=== PATIENT | female | born 1975 | race Caucasian/White ===

== ENCOUNTER 2018-11-09 09:57 | Emergency (ER) | payer OTHER ==
--- NOTE | 2018-11-09 10:58 | ED ---
Lower Extremity - HPI Summary HPI Summary: Pt presents w/ Lt ankle pain. Injured herself at work today - inverted ankle on ice. Pain is lateral. Swelling and bruising mostly lateral and into midfoot. Denies weakness, numbness, tingling. Pain is worse w/ movement of ankle. Pain radiates from mid foot to ankle. 8/10 pain despite elevation and ice pack. Pain with attempted weight bearing since injury. Other injuries include abrasion to Lt elbow (otherwise moving well w/o pain or restriction) and Rt knee bruise ( otherwise moving well, bearing weight and no pain/restriction). Denies injury to back, spine, neck, head. H/o DVT - takes ASA daily - no anticoagulants. - History of Current Complaint Chief Complaint: EDExtremityLower Stated Complaint: FALL ANKLE INJRUY LEFT Time Seen by Provider: 11/09/18 10:43 Hx Obtained From: Patient Pain Intensity: 6 - Allergies/Home Medications Allergies/Adverse Reactions: Allergies Allergy/AdvReac Type Severity Reaction Status Date / Time No Known Allergies Allergy Verified 11/09/18 10:17 PMH/Surg Hx/FS Hx/Imm Hx Previously Healthy: Yes Endocrine/Hematology History: Reports: Hx Blood Disorders - possible coagulopathy Denies: Hx Anticoagulant Therapy - ASA daily - Immunization History Date of Tetanus Vaccine: UTD Date of Influenza Vaccine: NO Infectious Disease History: No Infectious Disease History: Denies: Traveled Outside the [place] in Last 30 Days - Social History Occupation: Employed Full-time Alcohol Use: Occasionally Hx Substance Use: No Substance Use Type: Reports: None Hx Tobacco Use: No Smoking Status (MU): Never Smoked Tobacco Review of Systems Positive: no symptoms reported Positive: Arthralgia, Myalgia, Decreased ROM, Edema Positive: Bruising - Lt foot and Rt knee, Other - abrasion Lt ebow Neurological: Negative All Other Systems Reviewed And Are Negative: Yes Physical Exam Triage Information Reviewed: Yes Vital Signs On Initial Exam: Initial Vitals Temp Pulse Resp BP Pulse Ox 100 F 94 18 123/98 98 11/09/18 10:14 11/09/18 10:14 11/09/18 10:14 11/09/18 10:14 11/09/18 10:14 Vital Signs Reviewed: Yes Appearance: Positive: Well-Appearing, Pain Distress - moderate, Obese Skin: Positive: Warm, Skin Color Reflects Adequate Perfusion, Dry - no open wounds - ecchymosis about the affected area on Lt dorsal midfoot; superficial abrasion Lt elbow (no active bleeding); Rt knee w/ scna ecchymosis Head/Face: Positive: Normal Head/Face Inspection Eyes: Positive: EOMI ENT: Positive: Hearing grossly normal Respiratory/Lung Sounds: Positive: Breath Sounds Present Cardiovascular: Positive: Pulses are Symmetrical in both Upper and Lower Extremities. Negative: Leg Edema Left, Leg Edema Right Musculoskeletal: Positive: Strength/ROM Intact - no gross deformity - can move toes and ankle well; malleoli NTTP, Pain @ - mild TTP over area of focal edema/ hematoma along Lt dorsal midfoot (laterally) - soft and no skin breakdown Neurological: Positive: Normal, Sensory/Motor Intact, Alert, Oriented to Person Place, Time, CN Intact II-III Psychiatric: Positive: Anxious - tearful during initial exam - consolable Diagnostics - Vital Signs Vital Signs Temp Pulse Resp BP Pulse Ox 11/09/18 10:14 100 F 94 18 123/98 98 - Laboratory Lab Statement: Any lab studies that have been ordered have been reviewed, and results considered in the medical decision making process. Lower Extremity Course/Dx - Course Course Of Treatment: XR: no fx of foot or ankle. Sprain care provided - Diagnoses Provider Diagnoses: Left ankle sprain Discharge - Sign-Out/Discharge Documenting (check all that apply): Patient Departure - Discharge Plan Condition: Stable Disposition: HOME Patient Education Materials: Ankle Sprain (ED), Crutch Instructions (ED) Forms: *Work Release Referrals: [facility] [Outside] Additional Instructions: REST, ICE, ELEVATE AND WEAR REY WRAP DURING WAKING HOURS TO PREVENT SWELLING. You may take ibuprofen alternating with acetaminophen as needed for pain. Call PCP today to schedule follow-up *If you develop numbness, tingling, weakness, swelling or skin discoloration, remove REY wrap and elevate leg for 20 minutes. If symptoms persist, return to ED - Billing Disposition and Condition Condition: STABLE Disposition: Home
[2018-11-09] MEDS ORDERED: Ibuprofen TAB* 800 MG PO ONE (11:12)
[2018-11-09 12:26] VITALS: BP 118/78
== END 2018-11-09 13:29 | disposition home or self-care (01) ==
LOC: ED 09:57
DX: S93.402A Sprain of unspecified ligament of left ankle, initial encounter (principal); X50.9XXA Other and unspecified overexertion or strenuous movements or postures, initial encounter; Y92.9 Unspecified place or not applicable; Y99.0 Civilian activity done for income or pay; Z79.82 Long term (current) use of aspirin
CPT/HCPCS: 99282; A9270-GY